=== PATIENT | male | born 1940 | race Hispanic/Latino ===

== ENCOUNTER 2017-02-07 19:38 | Emergency (ER) | payer MEDICARE ==
[2017-02-07 20:08] VITALS: BP 127/85
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
[2017-02-07] MEDS ORDERED: NORCO 10/325 PO ONE (23:22)
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
== END 2017-02-07 23:45 | disposition home or self-care (01) ==
LOC: ED 19:38
DX: M54.2 Cervicalgia (principal); M54.9 Dorsalgia, unspecified; Z87.891 Personal history of nicotine dependence; V89.2XXA Person injured in unspecified motor-vehicle accident, traffic, initial encounter; Y93.89 Activity, other specified; Y99.8 Other external cause status; Y92.488 Other paved roadways as the place of occurrence of the external cause
CPT/HCPCS: 72040; 72100; 99283

== ENCOUNTER 2017-03-29 05:47 | Day surgery (SDC) | payer MEDICARE ==
[2017-03-14 10:27] LABS: Eosinophils % (Auto) 3.7 % (0.0-4.3); Hematocrit 46.1 % (35.5-45.6); Hemoglobin 15.8 gm/dl (11.8-15.2); Mean Corpuscular HGB Conc 34 % (32-34); Mean Corpuscular Hemoglobin 31 pg (28-32); Mean Corpuscular Volume 91 fl (84-94); Platelet Count 213 K/mm3 (140-440); Red Blood Count 5.09 M/mm3 (3.65-5.03); Red Cell Distribution Width 13.8 % (13.2-15.2); White Blood Count 8.7 K/mm3 (4.5-11.0)
[2017-03-14 10:38] LABS: INR 0.9 (0.87-1.13)
[2017-03-14 10:42] LABS: Alanine Aminotransferase 11 units/L (7-56); Albumin 4.1 g/dL (3.9-5); Albumin/Globulin Ratio 1.3 %; Alkaline Phosphatase 70 units/L (35-129); Anion Gap 15 mmol/L; BUN/Creatinine Ratio 25.71; Blood Urea Nitrogen 18 mg/dL (9-20); Calcium 8.8 mg/dL (8.4-10.2); Carbon Dioxide 25 mmol/L (22-30); Glucose 98 mg/dL (75-100); Potassium 4.1 mmol/L (3.6-5.0); Sodium 135 mmol/L (137-145); Total Protein 7.3 g/dL (6.3-8.2)
--- NOTE | 2017-03-14 10:50 | Anesthesia Consultation ---
Anesthesia Consult and Med Hx Date of service: 03/14/17 - Airway Anesthetic Teeth Evaluation: Dentures (upper and lower) ROM Head & Neck: Inadequate Mental/Hyoid Distance: Inadequate Mallampati Class: Class II Intubation Access Assessment: Possibly Difficult - Pulmonary Exam CTA: Yes - Cardiac Exam Cardiac Exam: RRR - Pre-Operative Health Status ASA Pre-Surgery Classification: ASA3 Proposed Anesthetic Plan: General - Pre-Anesthesia Comment Pre-Anesthesia Comments: Limited neck motion, may need a glidescope - Pulmonary Hx Smoking: Yes (STOPPED X 2 YRS- 2 PPD X 10 YRS) COPD: Yes (INHALER USE one per day) Hx Sleep Apnea: No ([place]UY PRE SCREEN HIGH RISK) - Cardiovascular System Hx Hypertension: Yes (X 3 YRS, lisinopril causes coughing) Hx Heart Attack/AMI: No - Central Nervous System Hx Seizures: No CVA: No Hx Back Pain: Yes (CHRONIC- ON DAILY MEDS) - Endocrine Hx Renal Disease: No Hx Liver Disease: No Hx Non-Insulin Dependent Diabetes: No - Other Systems Hx Cancer: No - Additional Comments Anesthesia Medical History Comments: NAC, 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
--- NOTE | 2017-03-16 12:14 | Admit Criteria Form ---
Admission Criteria Documentation: AMBULATORY SURGERY EXCEPTION CRITERIA Ambulatory Surgery Exception Criteria ( Place 'X' for any and all applicable criteria): Surgery or procedure performed on ambulatory basis may require inpatient stay for[A] ANY ONE of the following(1)(2)(3)(4)(5)(6)(7)(8)(9): [X] I. A preoperative situation, condition, or finding that warrants inpatient stay as indicated by ANY ONE of the following: [] a) Inpatient care needed because of severity of a disease or condition rather than the surgery (eg, severe cardiac or respiratory disease, severe infection) (15) (16 ) (17) (18) [] b) Emergent procedure (eg, angioplasty for acute ischemia)(19) [] c) Complex surgical approach or situation as indicated by ANY ONE of the following(3): [] i) Open approach needed instead of usual endoscopic, transcatheter, or other less invasive procedure [] ii) Difficult approach because of previous operation [] iii) Airway monitoring required after open neck procedures(20)(21) [] iv) Large mass requiring unusually extensive dissection [] v) Additional complicating feature requiring inpatient care (eg, drain management)(22(23): [X] d) Major surgery in a pt with high anesthetic risk as indicated by ANY ONE of the following (2)(3)(5)(7)(8): [X] i) ASA risk class III or higher (severe systemic disease impairing function) [D] [] ii) Advanced age (eg, older than 85 years)(14)(24) [] iii) Symptomatic heart failure(25) [] iv) Symptomatic asthma or COPD(8)(21) [] v) Morbid obesity with hemodynamic or respiratory problems(20)( 21)(26)(27) [] vi) Obstructive sleep apnea(20)(21) [] vii) Former premature infants who are younger than 60 weeks [] viii) High risk for severe postoperative abnormalities (eg, severe postoperative hypocalcemia after parathyroidectomy for severe hyperparathyroidism)(27)( 28) [] ix) Unstable angina(25) [] e) Drug-related risk requiring inpatient stay as indicated by ANY ONE of the following(5)(10)(14)(32)(33) [] i) Procedure requires discontinuing drugs or other therapy (eg , antiarrhythmic medication, antiseizure medication), which necessitates inpatient observation or treatment.(18)(31) [] ii) Major surgery and high risk drug use as indicated by ANY ONE of the following: [] 1) Active abuse of cocaine or similar drug [] 2) Monoamine oxidase inhibitor use [] 3) Other drug identified as posing risk [] f) Inadequate outpatient care situation as indicated by ANY ONE of the following(5)(10)(14)(32)(33) [] i) Patient lives remote from medical facility and procedure has urgent complication potential, and temporary nearby residence cannot be arranged [] ii) Patient will have postprocedure incapacitation and inadequate assistance at home, or alternative level of care cannot be arranged. [] iii) Patient will have long general anesthesia or procedure side effect resolution time, and competent person to stay with patient on first postoperative night at home or alternative level of care cannot be arranged. []iv) Other inadequate outpatient situation that cannot be handled by other means [] II. A perioperative event, condition, or finding that warrants inpatient stay as indicated by ANY ONE of the following (1)(2)(3): [] a) Inadequate physiologic recovery: cardiovascular, respiratory, or hemodynamic status not normal or near preoperative baseline(18) [] b) Hemodynamic instability [] c) Patient not alert with near normal or baseline mental status [] d) Temperature not normal or as expected and not appropriate for outpatient treatment of condition [] e) Ambulatory or appropriate activity level status not yet achieved post procedure [E](34)(35)(36) [] f) Operative site not appropriate (eg, unexpected or excessive drainage or bleeding) [] g) Postoperative effects not resolved or adequately managed (eg, significant pain or vomiting not appropriate for outpatient or next level of care)(10)(12) [] h) Complicating features requiring inpatient care as indicated by ANY ONE of the following(37): [] i) Severe complications of procedure (eg, bowel injury, airway compromise, vascular injury,severe hemorrhage) [] ii) Extensive (eg, dissection far beyond usual scope of procedure ) or prolonged (eg, 120 minutes beyond usual) surgery needed requiring inpatient postoperative care [] iii) Conversion to an open or complex procedure that requires inpatient care (eg, open vs laparoscopic cholecystectomy, abdominal vs vaginal hysterectomy)(38) [] iv) Comorbid condition or test result identified during or post procedure that requires inpatient care (7) [] v) Malignant hyperthermia(30) [] vi) Other complicating feature requiring inpatient care(22)(23) Inpatient stay may be needed until ALL of the following are present (1)(2)(3)(4) (5)(6)(10)(14)(33)(40): []a) Physiologic recovery: cardiovascular, respiratory, and hemodynamic status normal or near preoperative baseline []b) Hemodynamic stability []c) Patient alert, with near normal or baseline mental status []d) Temperature appropriate: patient afebrile or temperature appropriate for outpt treatment of condition []e) Activity level appropriate: ambulatory or appropriate activity level post procedure []f) Operative site appropriate as indicated by ALL of the following: []i) Site dry or with expected drainage []ii) Any blood noted is as expected for procedure. []g) Postoperative effects resolved or managed as indicated by ALL of the following: []i) Pain management appropriate for outpatient (or next level of) care(10) []ii) Minimal nausea and vomiting: if present, successfully treated with oral medication(12) []iii) Headache, dizziness, or drowsiness (if present) are mild. []h) Voiding status acceptable as indicated by ANY ONE of the following: []i) Voiding spontaneously []ii) No voiding but instructions given for follow-up in 6 to 8 hours []iii) Urinary catheter in place, and instructions given for follow-up []i) Complicating features requiring inpatient care manageable at a lower level of care(37) []j) Comorbid conditions manageable at a lower level of care(37) The original [employer] content created by [employer] has been revised. The portions of the content which have been revised are identified through the use of italic text or in bold, and [employer] has neither reviewed nor approved the modified material. All other unmodified content is copyright [employer]. Please see references footnoted in the original [employer] edition 2016
[~2017-03-29 05:47] MED LIST: NACL 0.9% 1000 ML 1,000 ML IV SCH; NEURONTIN PO NR; PEPCID PO NR; VANCOMYCIN/NS 1 GM/250 ML 1 GM/250 ML BAG IV NR; VERSED IV NR
[2017-03-29] MEDS ORDERED: VERSED IV NR (06:00)
[2017-03-29] MEDS ORDERED: PEPCID PO NR (06:00)
[2017-03-29] MEDS ORDERED: NACL 0.9% 1000 ML 1,000 ML IV SCH (06:00)
[2017-03-29] MEDS ORDERED: NEURONTIN PO NR (06:00)
[2017-03-29] MEDS ORDERED: VANCOMYCIN/NS 1 GM/250 ML 1 GM/250 ML BAG IV NR (06:00)
[2017-03-29] MEDS ORDERED: NACL BACTERIOSTATIC INFILTRATI ONE (06:41)
[2017-03-29] MEDS ORDERED: QUELICIN ONE (07:15)
[2017-03-29] MEDS ORDERED: DIPRIVAN 10 MG/ML IV ONE ×3 (07:16→08:34)
[2017-03-29] MEDS ORDERED: SUBLIMAZE ONE (07:16)
[2017-03-29] MEDS ORDERED: XYLOCAINE MPF 2% ONE (07:17)
[2017-03-29] MEDS ORDERED: ULTIVA 4 MG in NACL 0.9% 80 ML IV ONE (07:30)
[2017-03-29] MEDS ORDERED: ePHEDrine SULFATE ONE ×2 (08:05→09:30)
[2017-03-29] MEDS ORDERED: ZOFRAN ONE (09:10)
--- NOTE | 2017-03-29 09:12 | Short Stay Summary ---
Short Stay Documentation Date of service: 03/29/17 - History H&P: obtained from office - Allergies and Medications Current Medications: Allergies No Known Allergies Allergy (Verified 03/10/17 13:13) Home Medications Medication Instructions Recorded Confirmed Last Taken Type ALBUTEROL Inhaler [Proair] 2 puff IH QID PRN 03/10/17 03/10/17 03/28/17 History Lisinopril [Zestril] 20 mg PO QDAY 03/10/17 03/10/17 03/28/17 History Oxycodone HCl [Roxicodone TAB] 15 mg PO TID 03/10/17 03/10/17 03/28/17 History methOCARBAMOL [Robaxin TAB] 500 mg PO BID PRN 03/10/17 03/10/17 03/28/17 History Active Medications Famotidine (Pepcid) 20 mg PO PREOP NR Stop: 03/29/17 23:59 Last Admin: 03/29/17 06:43 Dose: 20 mg Gabapentin (Neurontin) 300 mg PO PREOP NR Stop: 03/29/17 23:59 Last Admin: 03/29/17 06:43 Dose: 300 mg Sodium Chloride (Nacl 0.9% 1000 Ml) 1,000 mls @ 100 mls/hr IV DIRECT MERA Last Admin: 03/29/17 06:50 Dose: 100 mls/hr Vancomycin HCl (Vancomycin/Ns 1 Gm/250 Ml) 1 gm in 250 mls @ 166.667 mls/hr IV PREOP NR PRN Reason: Protocol Stop: 03/29/17 23:59 Last Admin: 03/29/17 07:22 Dose: 166.667 mls/hr Remifentanil 4 mg/ Sodium (Chloride) 80 mls @ 1.02 mls/hr IV INTRAOP ONE; 0.01 MCG/KG/MIN PRN Reason: Protocol Stop: 04/01/17 13:55 Midazolam HCl (Versed) 2 mg IV PREOP NR Stop: 03/29/17 23:59 Last Admin: 03/29/17 07:20 Dose: 2 mg - Brief post op/procedure progress note Date of procedure: 03/29/17 Pre-op diagnosis: Degenerative disk C6-7 Post-op diagnosis: same Procedure: ACDF C6-7 Anesthesia: GETA Surgeon: KIN GOLD Business Office Representative: OLINDA SANDS Estimated blood loss: none Pathology: none Specimen disposition: discarded Condition: stable - Disposition Condition at discharge: Stable Disposition: DC-01 TO HOME OR SELFCARE - Discharge Diagnoses (1) Degeneration, intervertebral disc, cervical Status: Resolved Short Stay Discharge Plan Follow up with: PRIMARY CARE, [Primary Care Provider] - 7 Days
--- NOTE | 2017-03-29 11:10 | Operative Report ---
PREOPERATIVE DIAGNOSIS: Degenerative herniation, cervical disk, C6-C7. POSTOPERATIVE DIAGNOSIS: Degenerative herniation, cervical disk, C6-C7. PROCEDURE: Anterior cervical diskectomy and interbody fusion C6-7, Globus instrumentation. SURGEON: Rinku Matson M.D. CHANNEL MARKETING SPECIALIST: Scar Tatum RN ANESTHESIA: General. COMPLICATIONS: None. PROCEDURE IN DETAIL: Once the patient was on surgical table, the patient was placed in the [place] spine frame. Prepping and draping the patient in usual fashion. The patient was placed with a bolster behind his shoulders, tourniquet elevated and the shoulders taped down. Once this was done and after a time-out, the procedure was carried out by making a 1.5 inch incision, transverse, in front of the cervical spine. Dissection carried out to subcutaneous tissues. Exposure was carried down through the platysma exposing the posterior aspect of the cervical spine. Dissection was carried out from the sternocleidomastoid muscle to be able to dissect and expose the anterior aspect of the spine. The fascia was incised and opened, exposing the cervical spine. A needle marker pre-bent was applied to the disk space. X-rays were taken to demonstrate level. Once this was done, the procedure was continued by marking of the disk edge, ostectomy of the anterior lip was carried out using a mallet and a chisel. Following that, the patient underwent a diskectomy. The diskectomy was done without any problems. Once this was carried out, the procedure was continued by the incisional [place] distraction pins. With distraction was carried out and after distraction, cleaning up of these osteophytes and posterior gutters was done. This was done to subchondral bone. Once this was done, the procedure was continued by irrigation of the area and evaluation. Once this was done, the procedure was found to be clean. The procedure continued by the insertion of trial of spacers. These spacers were inserted without any problems, finally #6 spacer fitted the best. At this point, the spacer with anterior titanium plate was prepared, and the spacer was filled with bone chips from the anterior lip of the vertebra. The construct inserted into the space. Once it was done and checked under fluoroscopy, the fixation blades were then deployed into superior and inferior. X-rays were taken, demonstrated good position of the device both in the AP and lateral plane. The procedure was then terminated. The wound was irrigated. The procedure continued by irrigation of the wound, the insertion of suction drain, hemostasis and closure of the wound with Vicryl suture. A compression bandage was applied. There were no complications. JOB# [id number] PRASANNA/KENZIE
--- NOTE | 2017-03-29 11:22 | XRay Report ---
CERVICAL SPINE, ONE VIEW History: Herniated disc at C6-7, pain. Findings: A single lateral fluoroscopic spot shot of the cervical spine was obtained prior to surgery. A metallic pointer device overlies the anterior C6-7 disc space. There is diffuse degenerative disease. No fracture or malalignment. An endotracheal tube is in place. Impression: Cervical spondylosis.
--- NOTE | 2017-03-29 11:23 | XRay Report ---
CERVICAL SPINE, 2 VIEWS History: Pain, anterior fusion. Findings: Frontal and lateral fluoroscopic spot shots of the cervical spine were obtained during and after surgery which demonstrate anterior fusion changes at C6-7. Alignment appears anatomic. Degenerative changes are again noted. Impression: Stable appearance of the anterior fusion at C6-7.
[2017-03-29 15:04] VITALS: BP 151/98
== END 2017-03-29 14:20 | disposition home or self-care (01) ==
LOC: OR 05:47
DX: M54.2 Cervicalgia (principal); J44.9 Chronic obstructive pulmonary disease, unspecified; I10 Essential (primary) hypertension; G89.29 Other chronic pain; Z79.01 Long term (current) use of anticoagulants; Z87.891 Personal history of nicotine dependence
CPT/HCPCS: 22551; 22853; 36415; 72020; 72040; 80053; 85025; 85610; 85730; C1713; J0330; J2250; J2405; J2704; J3010; J3370; J7030